=== PATIENT | female | born 2000 | race Caucasian/White ===

== ENCOUNTER 2020-10-04 04:42 | Emergency (ER) | payer OTHER ==
[2020-10-04 05:08] VITALS: TEMP 98.1; BMI 29.2
[2020-10-04 09:42] VITALS: BP 123/71; PULSE 84
== END 2020-10-04 09:43 | disposition home or self-care (01) ==
LOC: JER 04:42
DX: O26.851 Spotting complicating pregnancy, first trimester (principal); Z3A.01 Less than 8 weeks gestation of pregnancy
CPT/HCPCS: 36415; 76801-TC; 84702; 86850; 86900; 86901; 99284-25

== ENCOUNTER 2020-10-06 19:29 | Emergency (ER) | payer OTHER ==
[2020-10-06 19:54] VITALS: BMI 37.5
[2020-10-06] MEDS ORDERED: ACETAMINOPHEN 325 MG TABLET (FP) PO ONE (21:13)
[2020-10-06] MEDS ORDERED: ACETAMINOPHEN 325 MG TABLET (FP) ONE (21:19)
[2020-10-06 21:47] VITALS: BP 120/57; PULSE 88; TEMP 98.5
== END 2020-10-06 22:17 | disposition home or self-care (01) ==
LOC: JER 19:29
DX: O03.9 Complete or unspecified spontaneous abortion without complication (principal); Z3A.08 8 weeks gestation of pregnancy
CPT/HCPCS: 36415; 76817-TC; 84702; 99284-25